=== PATIENT | female | born 1990 | race Two or more races ===

== ENCOUNTER 2016-04-26 11:26 | Emergency (ER) | payer MEDICAID ==
--- NOTE | 2016-04-26 11:28 | ED Physician Chart ---
Chief Complaint/HPI - Patient Information Date Seen:: 04/26/16 Time Seen:: 11:28 Chief Complaint:: dysuria History of Present Illness:: 25-year-old female with history of methamphetamine and heroin abuse, complains of acute, intermittent, moderate, nonradiating, 6 out of 10, dysuria 4 days. Denies any alleviating or exacerbating factors. No vaginal discharge. Multiple recent sexual relationships without protection. Historian:: Patient Review:: Nurse's Note Reviewed Review of Systems - Review of Systems Other: Complete system review otherwise unremarkable except as noted in HPI. Past Medical History - Past Medical History Past Medical History: Other (hepatitis C) Family History: None Social History: Non Smoker, No Alcohol, Illicit Drug Use, Homeless Surgical History: None Psychiatricy History: None Medication: None, Reviewed Family Medical History - Family Member Mother History Unknown: Yes Physical Exam - Physical Examination Other:: INITIAL VITAL SIGNS: Reviewed by me GENERAL: Alert and interactive. No acute distress HEAD: Head is normocephalic and atraumatic EYES: EOMI. . No scleral icterus. No conjunctival injection ENT: Moist mucous membranes. NECK: Supple. No masses. Full range of motion RESPIRATORY: No tachypnea. Clear breath sounds bilaterally. No wheezing, rales, or rhonchi CV: Regular rate and rhythm. No murmurs, rubs, or gallops ABDOMEN: Soft, non-distended, non-tender. No guarding. No rebound. No masses. EXTREMITIES: No deformity. No cyanosis. No edema. SKIN: Warm and dry. No obvious rashes. NEUROLOGIC: Alert and oriented. Face is symmetric. Speech is normal. Moves all extremities equally. Motor and sensory distally intact. Labs/Radiology/EKG Results - Lab Results Results: Lab Results 04/26/16 04/26/16 Range/Units 11:30 11:30 Urine Source CLEAN C Urine Color YELLOW Urine Clarity CLEAR (CLEAR) Urine pH 7.0 Ur Specific [place] 1.020 (1.005-1.030) Urine Protein TRACE (NEGATIVE) mg/dL Urine Glucose (UA) NEGATIVE (NEGATIVE) mg/dL Urine Ketones NEGATIVE (NEGATIVE) mg/dL Urine Blood TRACE (NEGATIVE) Urine Nitrate NEGATIVE (NEGATIVE) Urine Bilirubin NEGATIVE (NEGATIVE) Urine Urobilinogen 1.0 (0.2 - 1.0) E.U./dL Ur Leukocyte Esterase TRACE H (NEGATIVE) Urine RBC 0-2 (0-5) /hpf Urine WBC 10-25 H (0-5) /hpf Ur Epithelial Cells FEW (FEW) /lpf Urine Bacteria FEW (NONE SEEN) /hpf Urine Test NEGATIVE ED Septic Shock - . Is Septic Shock (SBP<90, OR Lactate>4 mmol\L) present?: No Reassessment (Disposition) - Reassessment Reassessment:: The patient's blood pressure was elevated (>120/80) but appears stable without evidence of hypertensive emergency or urgency. The patient was counseled about the risks hypertension urged to pursue outpatient monitoring and therapy within a week with her primary care physician. Patient has possible STD. Treated with Rocephin and azithromycin. Provided prescription for Macrobid for the UTI. Follow-up free clinic her PCP within one to 2 days. Gave return to ER precautions. Patient understands and agrees with the plan. Reassessment Condition:: Improved - Diagnosis Diagnosis:: STD UTI with hematuria Elevated blood pressure without the diagnosis of hypertension - Aftercare/Follow up Instructions Aftercare/Follow-Up Instructions:: Counseled pt regarding lab results/diagnosis & need follow up, Refer to Discharge Instructions Medication Prescribed:: Macrobid - Patient Disposition Discharge/Transfer:: Home Time:: 12:29 Condition at Disposition:: Improved ED Discharge Plan - Patient Disposition Admit/Discharge/Transfer: PT DISCHARGED HOME Condition at Disposition: Improved Instructions: Urinary Tract Infection, Sexually Transmitted Disease, Easy-to- Read
[2016-04-26 12:29] LABS: URINE BILIRUBIN NEGATIVE (NEGATIVE); URINE BLOOD TRACE (NEGATIVE); URINE COLOR YELLOW; URINE GLUCOSE (UA) NEGATIVE (NEGATIVE); URINE KETONE NEGATIVE (NEGATIVE)
[2016-04-26 12:30] LABS: URINE PROTEIN TRACE mg/dL (NEGATIVE)
[2016-04-26 12:39] LABS: URINE RBC 0-2 /hpf (0-5)
[2016-04-26 12:40] LABS: URINE BACTERIA FEW /hpf (NONE SEEN); URINE EPITHELIAL CELLS FEW /lpf (FEW)
== END 2016-04-26 12:55 | disposition home or self-care (01) ==
LOC: ER 11:26
DX: N39.0 Urinary tract infection, site not specified (principal); R31.9 Hematuria, unspecified; A64 Unspecified sexually transmitted disease; R03.0 Elevated blood-pressure reading, without diagnosis of hypertension; Z86.19 Personal history of other infectious and parasitic diseases; Z59.0 Homelessness
CPT/HCPCS: 81001-TC; 81025-TC; 87086-90; 87491-90; J0456; J0696; J2001; Z7502

== ENCOUNTER 2016-12-24 06:22 | Emergency (ER) | payer MEDICAID ==
--- NOTE | 2016-12-24 07:42 | ED Physician Chart ---
ED Chief Complaint/HPI - Patient Information Date Seen:: 12/24/16 Time Seen:: 07:00 Chief Complaint:: Left knee pain History of Present Illness:: 26 yo female has left knee pain after ground level fall 5 hours ago. The patient was able to ambulate. Allergies:: Allergies Allergy/AdvReac Type Severity Reaction Status Date / Time Penicillins Allergy Verified 04/26/16 12:02 Vitals:: Vital Signs - 8 hr 12/24/16 07:00 Temp 97.9 F HR 77 RR 18 BP 133/93 O2 Sat % 100 ED Review of Systems - Review of Systems General/Constitutional: No fever, No chills Skin: No skin lesions Head: No headache ENT: No nasal drainage Neck: No neck pain Cardio Vascular: No chest pain Pulmonary: No SOB GI: No nausea, No vomiting Musculoskeletal: Bone or joint pain ED Past Medical History - Past Medical History Past Medical History: Other (Hepatitis C) Social History: Non Smoker, No Alcohol, No Drug Use Surgical History: other (Left elbow surgery, jaw surgery) Family Medical History - Family Member Mother History Unknown: Yes ED Physical Exam - Physical Examination General/Constitutional: Awake, Alert Other Gen/Cons comments:: Sleepy, not very cooperative Head: Atraumatic Eyes: PERRL, EOMI Skin: No skin lesions ENMT: Nasal exam nl Neck: Full ROM w/o pain Respiratory: Clear to Auscultation, No Wheeze/Rhonchi/Rales Cardio Vascular: RRR, No murmur, gallop, rubs, NL S1 S2 Other Extremities comments:: Left inferior patellar tenderness, no tenderness on the lateral or medial side of the knee. Mild limited ROM. Neuro/Psych: No focal deficits ED Labs/Radiology/EKG Results - Radiology Results Results: left knee X ray: no fracture ED Assessment - Assessment General Assessment: 26 yo female has left knee pain due to fall. Critical Care Time: 30 min Excludes all billable procedures: Yes This condition life threatening/high prob of deterioration: No Assessment/Comments:: Left knee X ray 2 views Toradol 30mg IM F/u PCP if pain persists ED Septic Shock - . Is Septic Shock (SBP<90, OR Lactate>4 mmol\L) present?: No - <6hrs of presentation: Vital Signs: Vital Signs - 8 hr 12/24/16 07:00 Temp 97.9 F HR 77 RR 18 BP 133/93 O2 Sat % 100 ED Discharge Plan - Patient Disposition Admit/Discharge/Transfer: PT DISCHARGED HOME Condition at Disposition: Improved Instructions: Knee - Wear and Tear Disorders
[2016-12-24 08:36] LABS: AMPHETAMINE URINE POSITIVE (NEGATIVE); BARBITURATES URINE NEGATIVE (NEGATIVE)
[2016-12-24 08:37] LABS: METHADONE URINE NEGATIVE (NEGATIVE)
--- NOTE | 2016-12-24 08:50 | Diagnostic Imaging Report ---
EXAM: Left knee joint 3 views HISTORY: Status post fall COMPARISON: None FINDINGS: Multiple views of the left knee joint reviewed. The study demonstrates no evidence of fracture or dislocation. There is no evidence for joint effusion. The patella is intact. If clinically indicated ligamentous or meniscal injury is considered MRI examination might be helpful. IMPRESSION: Normal examination left knee joint.
== END 2016-12-24 11:01 | disposition home or self-care (01) ==
LOC: ER 06:22
DX: M25.562 Pain in left knee (principal); W19.XXXA Unspecified fall, initial encounter; Y93.89 Activity, other specified; Y92.89 Other specified places as the place of occurrence of the external cause; Y99.8 Other external cause status
CPT/HCPCS: 99291; 96372; 73564; 80307; 81025 ×2; J1885; 73562-TC-LT; Z7502